=== PATIENT | male | born 1930 | race Caucasian/White ===

== ENCOUNTER 2018-09-27 14:51 | Emergency (ER) | payer OTHER, MEDICARE, BC ==
[2018-09-27 15:01] VITALS: PULSE 64; RESP 20
[2018-09-27 18:00] VITALS: BP 136/61; O2SAT 95
[2018-09-27 20:08] VITALS: TEMP 97.4
== END 2018-09-27 17:25 | disposition home or self-care (01) | DRG 923 ==
LOC: ED 14:51
DX: T68.XXXA Hypothermia, initial encounter (principal); W05.0XXA Fall from non-moving wheelchair, initial encounter; Z79.01 Long term (current) use of anticoagulants; R40.2362 Coma scale, best motor response, obeys commands, at arrival to emergency department; R40.2142 Coma scale, eyes open, spontaneous, at arrival to emergency department; R40.2252 Coma scale, best verbal response, oriented, at arrival to emergency department
CPT/HCPCS: 99282; 99283

== ENCOUNTER 2019-02-25 11:35 | Outpatient (CLI) | payer MEDICARE, BC | END 2019-02-25 11:36 | disposition home or self-care (01) | LOC: CONVCARE 11:36 ==